=== PATIENT | female | born 1970 | race Asian ===

== ENCOUNTER 2025-01-02 11:55 | Emergency (ER) | payer OTHER ==
[2025-01-02] MEDS ORDERED: TETRACAINE 0.5% OPHTH SOLN 2 ML BOTTLE ONE (12:12)
[2025-01-02] MEDS: TETRACAINE 0.5% HCL 0.6ML DROPPER.BOTTLE OU ONE (12:15)
[2025-01-02 12:18] VITALS: BP 142/81; PULSE 105; RESP 22; BMI 25.4
[2025-01-02] MEDS ORDERED: ONDANSETRON *ODT* 4 MG TABLET ONE (12:21)
[2025-01-02] MEDS ORDERED: ALPRAZolam 0.25 MG TABLET ONE (12:21)
[2025-01-02] MEDS: ALPRAZolam 0.25 MG TABLET PO ONE (12:25)
[2025-01-02] MEDS: ONDANSETRON *ODT* 4 MG TABLET SL ONE (12:25)
[2025-01-02] MEDS ORDERED: FLUORESCEIN NA 1 EA STRIP ONE (13:07)
== END 2025-01-02 13:50 | disposition home or self-care (01) ==
LOC: FER 11:55
DX: T26.92XA Corrosion of left eye and adnexa, part unspecified, initial encounter (principal); Z57.2 Occupational exposure to dust
CPT/HCPCS: 99283-25; Q0162